=== PATIENT | female | born 1965 | race African-American/Black ===

== ENCOUNTER → 2018-05-07 | Outpatient (CLI) | payer OTHER ==
--- NOTE | 2018-05-08 09:24 | Diagnostic Imaging Report ---
#[id number] - [facility] : 05/07/2018 Comparison is made to exams dated: 05/07/2018 mammogram - [facility], 05/16/2017 ultrasound and 09/28/2016 ultrasound - [facility]. Color flow and real-time ultrasound were performed on the entire right breast with scanning in all four quadrants, retroareolar region and the right axilla. -At 12 o'clock 6 cm from the nipple is a hyoechoic nodule appearing unchanged and measuring 7 x 7 x 4 mm -At 6 o'clock 3 cm from the nipple is a cyst measuring 4 x 2 x 6 mm -At 10 o'clock 8 cm from the nipple is a benign appearing hypoechoic nodule measuring 9 x 4 x 8 mm -At 10 o'clock 8 cm from the nipple is the benign appearing hamartomatous nodule measuring 2.4 cm (previously 2.5 cm) IMPRESSION: BENIGN There is no sonographic evidence of malignancy. A 1 year screening mammogram is recommended. Kenny Day Jr., D.O. cw/:05/07/2018 15:10:31 Pattern Data Operator: NACHO BECERRA, [facility] letter sent: Compared to Prior B9 Ultrasound BI-RADS: 2 Benign
--- NOTE | 2018-05-08 09:24 | Diagnostic Imaging Report ---
#[id number] - MGDXBIL #BILATERAL DIGITAL DIAGNOSTIC MAMMOGRAM WITH CAD: 05/07/2018 Comparison is made to exams dated: 05/16/2017 ultrasound, 09/28/2016 ultrasound and 09/28/2016 mammogram - [facility]. Current study contains 8 films. The tissue of both breasts is extremely dense, which lowers the sensitivity of mammography. Current study was also evaluated with a Computer Aided Detection (CAD) system. There are benign calcifications in both breasts. There also are benign densities in both breasts. No significant masses, calcifications, or other findings are seen in either breast. There has been no significant interval change. IMPRESSION: BENIGN There is no mammographic evidence of malignancy. A 1 year screening mammogram is recommended. The patient will be notified by letter of the results. Kenny carnes/racheal:05/07/2018 14:54:40 Carcass Washer: Concepcion BERGER)(Feliciano), [facility] letter sent: Compared to Prior B9 Mammogram BI-RADS: 2 Benign
== END ==
LOC: MAMMO 08:52
PROVIDERS: ATTEND Obstetrics & Gynecology
DX: N60.11 Diffuse cystic mastopathy of right breast (principal); R92.8 Other abnormal and inconclusive findings on diagnostic imaging of breast
CPT/HCPCS: 77066

== ENCOUNTER → 2020-02-04 | Outpatient (CLI) | payer OTHER ==
--- NOTE | 2020-02-05 08:48 | Diagnostic Imaging Report ---
#[id number] - USBRELIMLT ULTRASOUND OF THE LEFT BREAST : 02/04/2020 Comparison is made to exam dated: 02/04/2020 mammogram - [facility]. Color flow and real-time ultrasound were performed on the left breast. Harris scale images of the real-time examination were reviewed. There is an irregular mass with a spiculated margin in the left breast at 4 o'clock middle depth. This correlates as palpated and with mammography findings. There are calcifications within the mass. Associated left axillary lymph nodes corresponding with mammographic findings. IMPRESSION: SUSPICIOUS OF MALIGNANCY - FOLLOW-UP RECOMMENDED The irregular mass in the left breast is suspicious of malignancy. An ultrasound guided biopsy is recommended. A phone call was made to the physician's office. The patient has been or will be contacted. TWAN SIDDIQUI M.D. kw/:02/04/2020 14:26:41 Supervisor Fabrication: ADILIA COLLINS [facility], [facility] letter sent: Biopsy Required Ultrasound BI-RADS: 4 Suspicious abnormality
--- NOTE | 2020-02-05 08:48 | Diagnostic Imaging Report ---
#[id number] - MGDXBIL #BILATERAL DIGITAL DIAGNOSTIC MAMMOGRAM WITH CAD: 02/04/2020 CLINICAL: Palpable lump left breast. Comparison is made to exams dated: 05/07/2018 mammogram - [facility] and 09/28/2016 mammogram - [facility]. The tissue of both breasts is extremely dense, which lowers the sensitivity of mammography. Current study was also evaluated with a Computer Aided Detection (CAD) system. There is oval equal density mass with an indistinct margin and segmental fine calcifications in the left breast at 3 o'clock middle depth. There are left axillary lymph nodes measuring up to 2.3 x 1.9cm. No other significant masses, calcifications, or other findings are seen in either breast. IMPRESSION: INCOMPLETE: NEEDS ADDITIONAL IMAGING EVALUATION The oval equal density mass in the left breast is indeterminate. Ultrasound will be performed during the same visit. TWAN SIDDIQUI M.D. kw/:02/04/2020 14:23:49 Ginner Helper: Concepcion LORA(R)(M), [facility] Mammogram BI-RADS: 0 Indeterminate
== END ==
LOC: MAMMO 10:09
PROVIDERS: ATTEND Internal Medicine
DX: N63.20 Unspecified lump in the left breast, unspecified quadrant (principal); N64.4 Mastodynia; R92.8 Other abnormal and inconclusive findings on diagnostic imaging of breast
CPT/HCPCS: 77066

== ENCOUNTER → 2020-02-10 | Outpatient (CLI) | payer OTHER ==
--- NOTE | 2020-02-11 08:43 | Diagnostic Imaging Report ---
#[id number] - [id number] ULTRASOUND GUIDED BIOPSY LEFT BREAST WITH POST MAMMOGRAPHIC IMAGIN02/10/2020 CLINICAL: Mass left breast. PATIENT CONSENT: According to [facility] requirements, a time out was performed, correct site was localized and the patient was consented. According to [facility] requirements, a time out was performed, correct site was localized and the patient was consented. PROCEDURE DESCRIPTION: Using full barrier sterile technique, 1% Lidocaine local anesthesia, and real time ultrasound guidance, the mass at in the breast was biopsied using a 14 ga core device. Specimens were submitted for histology. A micromarker was placed at the biopsy site for future reference. A sterile bandage was applied at the entry site. The patient was sent for a post biopsy mammogram with no immediate complications noted. Correlation is made to exams dated: 02/04/2020 ultrasound and 02/04/2020 mammogram - [facility]. An ultrasound guided biopsy using real-time ultrasound was performed for the 1.8 cm spiculated irregular shaped mass with calcifications located in the left breast at 4 o'clock anterior depth. This was described on the previous mammography and ultrasound reports. The skin was prepped in the usual manner. Local anesthetic was administered to the access site. A skin frantz was made in the breast. The abnormality was approached from the craniocaudal aspect. A 13 gauge biopsy needle was placed adjacent to the abnormality under ultrasound guidance. Once the needle was documented to be in the correct location, three specimens were obtained using an Achieve automated firing device. Post procedure mammographic imaging demonstrates the clip at the targeted area. The specimens were sent to the laboratory for pathological analysis. IMPRESSION: ULTRASOUND GUIDED BIOPSY Ultrasound guided biopsy of the 1.8 cm mass in the left breast anterior depth was successful. Waiting for pathology results. A final report will be issued when these become available. Follow-up with ACR/ACS guidelines. TWAN SIDDIQUI M.D. kw/:02/10/2020 11:34:19 Auto Battery Builder: Luann Wilson [facility], [facility] [id number]
--- NOTE | 2020-02-11 08:43 | Diagnostic Imaging Report ---
#[id number] - MGDXLT #UNILATERAL LEFT DIGITAL DIAGNOSTIC MAMMOGRAM: 02/10/2020 Comparison is made to exams dated: 02/04/2020 mammogram and 02/10/2020 ultrasound biopsy - [facility]. The tissue of the left breast is heterogeneously dense. This may lower the sensitivity of mammography. There is a marker clip in the appropriate position in the left breast at 4 o'clock anterior depth. This marker clip placement is at biopsy site. IMPRESSION: POST PROCEDURE MAMMOGRAM FOR MARKER PLACEMENT There was a successful marker clip placement in the left breast anterior depth. Follow-up with ACR/ACS guidelines. TWAN liriano/penrad:02/10/2020 11:36:52 Materials Handler: Concepcion LORA(Jillian)(M), [facility] Mammogram BI-RADS: Post-procedure mammogram for marker placement
== END ==
LOC: US 09:12
PROVIDERS: ATTEND Internal Medicine
DX: N63.20 Unspecified lump in the left breast, unspecified quadrant (principal)
CPT/HCPCS: 88305; 88342

== ENCOUNTER → 2020-06-30 | Outpatient (CLI) | payer OTHER | LOC: MRI 09:03 | PROVIDERS: ATTEND Internal Medicine | DX: R42 Dizziness and giddiness (principal); R51.9 Headache, unspecified; C50.919 Malignant neoplasm of unspecified site of unspecified female breast | CPT/HCPCS: 70551 ==